=== PATIENT | male | born 1990 | race African-American/Black ===

== ENCOUNTER 2016-10-11 23:40 | Emergency (ER) | payer BC ==
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
[2016-10-12] MEDS ORDERED: LIDOCAINE 1% INJ (10 MG/ML) 10 ML MDV INJ ONE (02:29)
[2016-10-12] MEDS ORDERED: PENICILLIN V POTASSIUM 500 MG TABLET PO ONE (02:29)
[2016-10-12] MEDS ORDERED: BUPIVACAINE HCL 0.25 % INJ/PF (2.5 MG/1 ML) 30 ML VIAL INJ ONE (02:29)
[2016-10-12] MEDS ORDERED: LIDOCAINE 1% INJ-PF (10 MG/ML) 30 ML SDV ONE (02:37)
--- NOTE | 2016-10-12 02:40 | ER Document Report ---
ED Oral Problem - General Chief Complaint: Toothache Stated Complaint: TOOTH PAIN Mode of Arrival: Ambulatory Notes: Patient is a 26-year-old male who comes in with dental pain. Patient is not sure what happened but his tooth is aching. Took [id number] medications at home without relief Patient denies any fever. No difficulty breathing, talking, or swallowing. Patient has dental insurance and is planning to follow- up with a dentist within the next day or 2. TRAVEL OUTSIDE OF THE [place] IN LAST 30 DAYS: No - HPI Patient complains to provider of: Toothache Onset: Other Quality of pain: Dull Severity: Moderate Associated symptoms: None - Related Data Allergies/Adverse Reactions: No Known Allergies Allergy (Verified 10/12/16 00:00) Past Medical History - General Information source: Patient - Social History Smoking Status: Never Smoker Chew tobacco use (# tins/day): No Frequency of alcohol use: None Drug Abuse: None Family History: Reviewed & Not Pertinent Patient has suicidal ideation: No Patient has homicidal ideation: No - Medical History Medical History: Negative - Past Medical History Cardiac Medical History: Denies: Hx Coronary Artery Disease, Hx Peripheral Vascular Disease, Hx Pulmonary Embolism Renal/ Medical History: Denies: Hx Peritoneal Dialysis Review of Systems - Review of Systems -: Yes All other systems reviewed and negative Physical Exam - Vital signs Vitals: Temp Pulse Resp BP Pulse Ox 98.4 F 73 22 H 173/98 H 97 10/11/16 23:50 10/11/16 23:50 10/11/16 23:50 10/11/16 23:50 10/11/16 23:50 Interpretation: Normal - General General appearance: Appears well, Alert - HEENT Head: Normocephalic, Atraumatic Eyes: Normal Pupils: PERRL Sinus: Normal Nasal: Normal Mouth/Lips: Normal Mucous membranes: Normal Teeth diagram: 1 - ttp Pharynx: Normal Neck: Normal - Respiratory Respiratory status: No respiratory distress Chest status: Nontender Breath sounds: Normal Chest palpation: Normal - Cardiovascular Rhythm: Regular Heart sounds: Normal auscultation Murmur: No - Abdominal Inspection: Normal Distension: No distension Bowel sounds: Normal Tenderness: Nontender Organomegaly: No organomegaly - Back Back: Normal, Nontender - Extremities General upper extremity: Normal inspection, Nontender, Normal color, Normal ROM , Normal temperature General lower extremity: Normal inspection, Nontender, Normal color, Normal ROM , Normal temperature, Normal weight bearing. No: Alfredo's sign - Neurological Neuro grossly intact: Yes Cognition: Normal Orientation: AAOx4 Gisell Coma Scale Eye Opening: Spontaneous Rainier Coma Scale Verbal: Oriented Gisell Coma Scale Motor: Obeys Commands Gisell Coma Scale Total: 15 Speech: Normal Motor strength normal: LUE, RUE, LLE, RLE Sensory: Normal - Psychological Associated symptoms: Normal affect, Normal mood - Skin Skin Temperature: Warm Skin Moisture: Dry Skin Color: Normal Course - Re-evaluation Re-evalutation: 10/12/16 Perform dental block to inferior alveolar area on the left. Patient had a complete relief after this. Patient will be discharged home with pain medication and antibiotics. Is to follow-up with the dentist this week. Stable for discharge. Return if any worsening or concerning symptoms. Understands agrees with plan. Grateful for care. - Vital Signs Vital signs: Temp Pulse Resp BP Pulse Ox 97.1 F 50 L 20 177/85 H 98 10/12/16 03:10 10/12/16 03:10 10/12/16 03:10 10/12/16 03:10 10/12/16 03:10 Discharge - Discharge Clinical Impression: Toothache Condition: Stable Disposition: HOME, SELF-CARE Instructions: Toothache ([facility]), Penicillin V K ([facility]), Dentist Prescriptions: Oxycodone HCl/Acetaminophen [Percocet 5-325 mg Tablet] 1 - 2 tab PO Q4H PRN #15 tablet PRN Reason: Penicillin V Potassium [Penicillin Vk 500 mg Tablet] 500 mg PO TID #30 tablet Forms: Return to Work, Elevated Blood Pressure
[2016-10-12] MEDS ORDERED: HYDROCODONE/ACETAMINOPHEN 5-325 MG 6 TAB/DSPK PO PRN (02:58)
[2016-10-12 03:20] VITALS: BP 177/85
== END 2016-10-12 03:12 | disposition home or self-care (01) ==
LOC: ER 23:40
PROC: 3E0T3BZ Introduction of Anesthetic Agent into Peripheral Nerves and Plexi, Percutaneous Approach (ICD-10-PCS; principal; 2016-10-11)
DX: K08.9 Disorder of teeth and supporting structures, unspecified (principal)
CPT/HCPCS: 99282; 64400; J3490